=== PATIENT | female | born 1995 | race Caucasian/White ===

== ENCOUNTER 2022-03-10 15:06 | Emergency (ER) | payer SELFPAY ==
[~2022-03-10] VITALS: Ht 167.6 cm; Wt 68.0 kg
[2022-03-10 15:22] VITALS: BP 138/88
== END 2022-03-10 18:58 | disposition home or self-care (01) ==
LOC: ER 15:06
DX: O26.893 Other specified pregnancy related conditions, third trimester (principal); S30.1XXA Contusion of abdominal wall, initial encounter; S80.812A Abrasion, left lower leg, initial encounter; S80.811A Abrasion, right lower leg, initial encounter; X58.XXXA Exposure to other specified factors, initial encounter; Y93.89 Activity, other specified; Y92.89 Other specified places as the place of occurrence of the external cause; Y99.8 Other external cause status
CPT/HCPCS: 76815; 99284